=== PATIENT | female | born 1990 | race Caucasian/White ===

== ENCOUNTER 2025-04-03 14:07 | Emergency (ER) | payer MEDICAID ==
[~2025-04-03] VITALS: Ht 157.5 cm; Wt 67.0 kg
[2025-04-03 14:34] VITALS: BP 103/79; PULSE 87; RESP 18; TEMP 98.1; O2SAT 99
[2025-04-03 15:19] LABS: APPEARANCE,URINE CLEAR (CLEAR); GLUCOSE, URINE (UA) NEGATIVE (NEGATIVE); LEUKOCYTE ESTERASE ,URINE LARGE (NEGATIVE); NITRATE,URINE NEGATIVE (NEGATIVE); OCCULT BLOOD,URINE NEGATIVE (NEGATIVE); SPECIFIC GRAVITIY, URINE 1.024 (1.003-1.030)
[2025-04-03] MEDS ORDERED: CEPH-558 PO (16:41)
[2025-04-03] MEDS ORDERED: FLUC150T48 PO (16:43)
== END 2025-04-03 16:50 | disposition home or self-care (01) ==
LOC: EMS 14:22
DX: N39.0 Urinary tract infection, site not specified (principal); F12.90 Cannabis use, unspecified, uncomplicated; F17.210 Nicotine dependence, cigarettes, uncomplicated; Z20.2 Contact with and (suspected) exposure to infections with a predominantly sexual mode of transmission
CPT/HCPCS: 81001; 87086; 87491; 87591; 99283